=== PATIENT | female | born 1965 | race Caucasian/White ===

== ENCOUNTER 2018-12-22 21:01 | Emergency (ER) | payer OTHER ==
--- NOTE | 2018-12-22 21:14 | Emergency Department Record ---
History of Present Illness - General Chief complaint: Rash Stated complaint: RASH ON FACE Time Seen by Provider: 12/22/18 21:12 Source: Patient Mode of Arrival: Ambulatory Limitations: No limitations - History of Present Illness Initial comments: 53 yo female presents to ED for evaluation of a recurrent, painful rash to the left maxillary region/infra-orbital region that was present two weeks ago however improved with Keflex and Prednisone. Patient reports that once her prednisone was completed however, her rash began to return. Patient is concern ed about a possible reoccurrence of shingles that she had approximately 20 years ago, reports similar symptoms. Patient denies fevers, chills, or recent illness symptoms. MD complaint: Rash Onset/Timin -: Days(s) Location: Face Severity: Moderate Consistency: Constant Improves with: Other (Prednisone) Worsens with: None Associated symptoms: Denies other symptoms - Related Data Home Medications Medication Instructions Recorded Confirmed Last Taken No Home Med [NO HOME MEDS] 12/22/18 12/22/18 Unknown Previous Rx's Medication Instructions Recorded Acyclovir 800 mg PO 5XD #34 tablet 12/22/18 Prednisone [Prednisone 20Mg] 20 mg PO BID #15 tab 12/22/18 Allergies Allergy/AdvReac Type Severity Reaction Status Date / Time No Known Drug Allergies Allergy Verified 12/22/18 21:14 Review of Systems Constitutional: Denies: Chills, Fever, Malaise, Night sweats Eyes: Denies: Eye discharge, Eye pain ENT: Denies: Congestion, Ear pain, Epistaxis Respiratory: Denies: Cough, Dyspnea Cardiovascular: Denies: Chest pain, Dyspnea on exertion Endocrine: Denies: Fatigue, Heat or cold intolerance Gastrointestinal: Denies: Abdominal pain, Nausea, Vomiting Genitourinary: Denies: Incontinence, Retention Musculoskeletal: Denies: Arthralgia, Back pain Skin: Reports: Rash. Denies: Bruising, Change in color Neurological: Denies: Abnormal gait, Confusion, Headache, Seizure Psychiatric: Denies: Anxiety Hematological/Lymphatic: Denies: Anemia, Blood Clots Physical Exam - General General Appearance: Alert, Oriented x3, Cooperative, No acute distress Limitations: No limitations - Head Head exam: Atraumatic, Normocephalic, Normal inspection Head exam detail: Other (Erythema, mild blistering present to the left maxillary region.infra-orbital region on examination.). negative: Abrasion, Contusion, Sheth's sign, General tenderness, Hematoma, Laceration - Eye Eye exam: Normal appearance. negative: Conjunctival injection, Periorbital swelling, Periorbital tenderness, Scleral icterus - ENT Ear exam: negative: Auricular hematoma, Auricular trauma Nasal Exam: negative: Active bleeding, Discharge, Dried blood, Foreign body Mouth exam: negative: Drooling, Laceration, Muffled voice, Tongue elevation - Neck Neck exam: Normal inspection. negative: Meningismus, Tenderness - Respiratory Respiratory exam: Normal lung sounds bilaterally. negative: Rales, Respiratory distress, Rhonchi, Stridor - Cardiovascular Cardiovascular Exam: Regular rate, Normal rhythm, Normal heart sounds - GI/Abdominal GI/Abdominal exam: Soft. negative: Rebound, Rigid, Tenderness - Rectal Rectal exam: Deferred - exam: Deferred - Extremities Extremities exam: Normal inspection. negative: Pedal edema, Tenderness - Back Back exam: Denies: CVA tenderness (R), CVA tenderness (L) - Neurological Neurological exam: Alert, Normal gait, Oriented X3 - Psychiatric Psychiatric exam: Normal affect, Normal mood - Skin Skin exam: Normal color. negative: Abrasion Type of lesion: negative: abrasion Course Vital Signs 12/22/18 21:07 Temperature 98.2 F Pulse Rate [ 73 Left] Respiratory 16 Rate Blood Pressure 126/82 [Left Arm] Pulse Ox 97 - Reevaluation(s) Reevaluation #1: 12/22/18 21:22 Facial rash appears c/w either contact dermatitis vs. shingles to the affected dermatome. As the patient's symptoms improved with Prednisone, will restart prednisone and treat with Acyclovir as directed. 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 Patient appears stable for discharge at this time. Disposition Disposition: Discharge Clinical Impression: Dermatitis Disposition: Home, Self-Care Condition: (2) Stable Instructions: Dermatitis (ED) Additional Instructions: Return to ED if your symptoms worsen or if you have any concerns. Prednisone and Acyclovir as directed. Follow-up with your family doctor in 3-5 days as directed. Prescriptions: Acyclovir 800 mg PO 5XD #34 tablet Prednisone [Prednisone 20Mg] 20 mg PO BID #15 tab Forms: Patient Portal Access Time of Disposition: 21:14 Quality - Quality Measures Quality Measures: N/A - Blood Pressure Screening Does Patient Have Any of the Following: No Blood Pressure Classification: Pre-Hypertensive BP Reading Systolic Measurement: 126 Diastolic Measurement: 82 Screening for High Blood Pressure: < Pre-Hypertensive BP, F/U Documented > [[id number]] Pre-Hypertensive Follow-up Interventions: Referral to alternative/primary care provider.
[2018-12-22] MEDS ORDERED: ACYCLOVIR 200 MG CAPSULE PO ONE (21:19)
[2018-12-22] MEDS ORDERED: PREDNISONE 20 MG TAB PO ONE (21:19)
== END 2018-12-22 21:40 | disposition home or self-care (01) ==
LOC: ER 21:01
DX: L25.9 Unspecified contact dermatitis, unspecified cause (principal)
CPT/HCPCS: 99282; J7512